=== PATIENT | female | born 1965 | race Caucasian/White ===

== ENCOUNTER 2017-12-24 09:42 | Emergency (ER) | payer MEDICAID ==
[2017-12-24] MEDS: KETOROLAC 15 MG INJ IM (12:03)
[2017-12-24] MEDS: HYDROCODONE/APAP (5/325) TAB PO (12:04)
[2017-12-24] MEDS: ONDANSETRON (ODT) 4 MG TAB ODT (14:09)
== END 2017-12-24 14:53 | disposition home or self-care (01) ==
LOC: FTE 09:42
DX: M79.604 Pain in right leg (principal)
CPT/HCPCS: 72170; 73510; 73562; 73610-RT; 96372; 99284-25